=== PATIENT | male | born 1985 | race Caucasian/White ===

== ENCOUNTER 2017-06-08 17:14 | Emergency (ER) | payer BC ==
--- NOTE | 2017-06-08 18:05 | EDM.PDOC ---
<Arpita Prescott - Last Filed: 06/08/17 18:53> ED HPI GENERAL MEDICAL PROBLEM - General Chief Complaint: Back Pain or Injury Stated Complaint: FALL/BACK PAIN SHORT OF BREATH Time Seen by Provider: 06/08/17 17:55 - History of Present Illness INITIAL COMMENTS - FREE TEXT/NARRATIVE: HISTORY AND PHYSICAL: History of present illness: The patient is a healthy 32-year-old male who slipped on the ice and fell backwards impacting his thoracic spine and upper back area which caused him to briefly lose his breath and since that time he has had discomfort in this area bilaterally as well as discomfort with any movements of his arms and taking deep breaths. The patient hit his head but did not pass out or black out and has no head neck or lower back pain and has no extremity complaints. He has no abdominal complaints and has no anterior chest pain. The patient took Aleve at home coming here. Review of systems: As per history of present illness and below otherwise all systems reviewed and negative. Past medical history: As per history of present illness and as reviewed below otherwise noncontributory. Surgical history: As per history of present illness and as reviewed below otherwise noncontributory. Social history: No reported history of drug or alcohol abuse. Family history: As per history of present illness and as reviewed below otherwise noncontributory. Physical exam: General: Well-developed well-nourished man who is nontoxic and vital signs been reviewed by me. HEENT: Atraumatic, normocephalic, negative for conjunctival pallor or scleral icterus, mucous membranes moist, throat clear, neck supple, nontender, trachea midline. There are no midline step-offs tenderness or defects of the cervical spine Lungs: Clear to auscultation, breath sounds equal bilaterally, chest nontender. Heart: S1S2, regular rate and rhythm no murmurs Abdomen: Soft, nondistended, nontender. Negative for costovertebral tenderness. Pelvis: Deferred Genitourinary: Deferred. Rectal: Deferred. Extremities: Atraumatic, negative for cords or calf pain. Neurovascular unremarkable. Full range of motion without defects or deficits Neuro: Awake, alert, oriented. Cranial nerves II through XII unremarkable. Cerebellum unremarkable. Motor and sensory unremarkable throughout. Exam nonfocal. Back: There are no midline step-offs tenderness or defects of the thoracic or lumbar spine but there is paraspinal thoracic tenderness bilaterally as well as tenderness in the posterior ribs bilaterally without crepitus soft tissue swelling soft tissue defects ecchymosis or erythema. Diagnostics: Bilateral ribs, chest x-ray Therapeutics: Norflex Case is endorsed to Dr. Mcmullen at 7 PM to follow-up x-ray results and disposition patient Impression: Fall with thoracic back contusion/posterior rib contusion bilaterally Definitive disposition and diagnosis as appropriate pending reevaluation and review of above. Back Pain Score (Numeric/FACES): 10 - Related Data Allergies Allergy/AdvReac Type Severity Reaction Status Date / Time No Known Allergies Allergy Verified 06/08/17 17:40 Home Meds: Home Meds . [No Known Home Meds] 06/08/17 [History] Past Medical History - Past Health History Medical/Surgical History: Denies Medical/Surgical History Social & Family History - Tobacco Use Smoking Status *Q: Current Every Day Smoker Years of Tobacco use: 10 Packs/Tins Daily: 0.5 - Recreational Drug Use Recreational Drug Use: No ED ROS GENERAL - Review of Systems Review Of Systems: ROS reveals no pertinent complaints other than HPI. ED EXAM, GENERAL - Physical Exam Exam: See Below (See dictation) Course - Vital Signs Last Recorded V/S: Last Vital Signs Temp 98.1 F 06/08/17 17:41 Pulse 70 06/08/17 17:41 Resp 18 06/08/17 17:41 BP 137/80 06/08/17 17:41 Pulse Ox 98 06/08/17 17:41 - Orders/Labs/Meds Orders: Active Orders 24 hr Category Date Time Status Chest 2V [CR] Stat Exams 06/08/17 18:00 Taken Ribs 2V wo Chest Lt [CR] Stat Exams 06/08/17 18:00 Taken Ribs 2V wo Chest Rt [CR] Stat Exams 06/08/17 18:00 Taken Meds: Medications Discontinued Medications Generic Name Dose Route Start Last Admin Trade Name Freq PRN Reason Stop Dose Admin Orphenadrine Citrate 60 mg 06/08/17 18:00 06/08/17 18:07 Norflex IM 06/08/17 18:01 60 mg ONETIME ONE Administration Departure - Departure Disposition: Home, Self-Care 01 Condition: Good Clinical Impression: Muscle spasm Contusion of back wall of thorax Qualifiers: Encounter type: initial encounter Laterality: unspecified laterality Qualified Code(s): S20.229A - Contusion of unspecified back wall of thorax, initial encounter - Discharge Information Referrals: Thanh Baires MD [Primary Care Provider] - Forms: ED Department Discharge Additional Instructions: Medication as prescribed--Norflex twice daily, no driving alcohol or hazardous activities while taking this medication Ibuprofen 400 mg to 800 mg 3 times daily 7-10 days Ice patches may benefit Ice 20 minute intervals 3 times daily as needed Follow-up with primary care in 2 weeks sooner as needed The following information is given to patients seen in the emergency department who are being discharged to home. This information is to outline your options for follow-up care. We provide all patients seen in our emergency department with a follow-up referral. The need for follow-up, as well as the timing and circumstances, are variable depending upon the specifics of your emergency department visit. If you don't have a primary care physician on staff, we will provide you with a referral. We always advise you to contact your personal physician following an emergency department visit to inform them of the circumstance of the visit and for follow-up with them and/or the need for any referrals to a consulting specialist. The emergency department will also refer you to a specialist when appropriate. This referral assures that you have the opportunity for followup care with a specialist. All of these measure are taken in an effort to provide you with optimal care, which includes your followup. Under all circumstances we always encourage you to contact your private physician who remains a resource for coordinating your care. When calling for followup care, please make the office aware that this follow-up is from your recent emergency room visit. If for any reason you are refused follow-up, please contact the [facility] emergency department at and ask to speak to the emergency department charge nurse. [facility] Primary care- Internal Medicine and Family [address] [address] . <Severiano Mcmullen - Last Filed: 06/08/17 19:24> ED HPI GENERAL MEDICAL PROBLEM - History of Present Illness INITIAL COMMENTS - FREE TEXT/NARRATIVE: I've seen and examined the patient and agree as above Symptomatically the patient is improving post Norflex and is moving freely with minimal discomfort I can reproduce pain with palpation of the paraspinous muscles left greater than right current No fever nausea vomiting chills sweats no chest pain shortness breath headache dizziness or palpitation no bowel or urine symptoms No footdrop saddle anesthesia Gen. 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
--- NOTE | 2017-06-10 14:57 | CR ---
EXAM DATE: 06/08/17 PATIENT'S AGE: 32 Patient: CECILE GOMEZ Facility: [place], [place] Site . Site : 1985 Study: XRay Chest [id number]/3/2018 6:44:44 PM Ordering Physician: Kenyon Palm Final Report: INDICATION: Shortness of breath. Patient fell. COMPARISON: none TECHNIQUE: Two view chest. FINDINGS: The lungs are clear. There is no evidence pneumothorax. The visualized ribs appear intact. The heart, mediastinum and pulmonary vessels are of normal size. There is no evidence of pleural fluid. IMPRESSION: Negative chest. Dictated by Philippe Rojas MD @ Jun 08 2017 6:53PM (Electronic Signature) Report Signed by Proxy. CUATE
--- NOTE | 2017-06-10 14:58 | CR ---
EXAM DATE: 06/08/17 PATIENT'S AGE: 32 Patient: CECILE GOMEZ Facility: [place], [place] Site . Site : 1985 Study: XRay Chest Left ribs [id number]/3/2018 6:57:54 PM Ordering Physician: Kenyon Palm Final Report: INDICATION: pain/fall INDICATION: Pain. Fall. TECHNIQUE: Left hemithorax, three views. COMPARISON: Chest, 2 views 06/08/2017. FINDINGS: Bones: Alignment is normal. No fractures or bone lesions. Joint spaces: Unremarkable. Soft tissues: Unremarkable. IMPRESSION: 1. Lungs are clear where visualized. 2. No displaced rib fracture or pneumothorax. Dictated by Thanh Amanda MD @ 06/08/2017 7:03:32 PM Dictated by: Thanh Amanda MD @ 06/08/2017 19:03:44 (Electronic Signature) Report Signed by Proxy. MTDHilary
--- NOTE | 2017-06-10 14:59 | CR ---
EXAM DATE: 06/08/17 PATIENT'S AGE: 32 Patient: CECILE GOMEZ Facility: [place], [place] Site . Site : 1985 Study: XRay Chest Right ribs [id number]/3/2018 6:58:17 PM Ordering Physician: Kenyon Palm Final Report: INDICATION: pain/fall INDICATION: Pain. Fall. TECHNIQUE: Right hemithorax, three views. COMPARISON: Chest, two views 06/08/2017. FINDINGS: Bones: Alignment is normal. No fractures or bone lesions. Joint spaces: Unremarkable. Soft tissues: Unremarkable. IMPRESSION: 1. No displaced rib fracture or pneumothorax. 2. Included lungs are clear. Dictated by Thanh Amanda MD @ 06/08/2017 7:05:25 PM Dictated by: Thanh Amanda MD @ 06/08/2017 19:05:32 (Electronic Signature) Report Signed by Proxy. MTDHilary
== END 2017-06-08 19:40 | disposition home or self-care (01) ==
LOC: MW.ED 17:14
DX: S20.229A Contusion of unspecified back wall of thorax, initial encounter (principal); S20.219A Contusion of unspecified front wall of thorax, initial encounter; F17.210 Nicotine dependence, cigarettes, uncomplicated; W00.9XXA Unspecified fall due to ice and snow, initial encounter
CPT/HCPCS: 71046; 71100; 96372; 99283; J2360; 99284

== ENCOUNTER 2023-12-14 13:33 | Emergency (ER) | payer BC, OTHER ==
[2023-12-14] MEDS: Diphtheria,Pertussis(Acell),Tetanus Vaccine 0.5 ML Syringe IM ONE (14:03)
[2023-12-14] MEDS: Lidocaine 1% 5 ML VIAL INJECT ONE (14:04)
== END 2023-12-14 14:14 | disposition home or self-care (01) ==
LOC: MW.ED 13:33
DX: S51.812A Laceration without foreign body of left forearm, initial encounter (principal); Z23 Encounter for immunization; W27.0XXA Contact with workbench tool, initial encounter
CPT/HCPCS: 12002; 90471; 90715; 99282-25; 99283; J3490

== ENCOUNTER 2023-12-22 14:12 | Emergency (ER) | payer OTHER | END 2023-12-22 14:23 | disposition home or self-care (01) | LOC: MW.ED 14:12 | DX: S41.112D Laceration without foreign body of left upper arm, subsequent encounter (principal); Z48.02 Encounter for removal of sutures | CPT/HCPCS: 99281 ==

== ENCOUNTER 2024-10-31 15:31 | Emergency (ER) | payer BC, OTHER ==
[2024-10-31] MEDS: Tetracaine HCl/PF 0.5% 4 ML Bottle EYEBOTH ONE (15:47)
== END 2024-10-31 17:24 | disposition home or self-care (01) ==
LOC: MW.ED 15:31
DX: T15.01XA Foreign body in cornea, right eye, initial encounter (principal); Z75.3 Unavailability and inaccessibility of health-care facilities; W22.8XXA Striking against or struck by other objects, initial encounter
CPT/HCPCS: 65205; 99282; 99283-25; J3490